=== PATIENT | female | born 1945 | race Two or more races ===

== ENCOUNTER 2022-06-30 17:50 | Emergency (ER) | payer OTHER | END 2022-06-30 20:02 | disposition left against medical advice (07) | LOC: ER 17:50 | DX: R11.10 Vomiting, unspecified (principal); Z53.21 Procedure and treatment not carried out due to patient leaving prior to being seen by health care provider ==

== ENCOUNTER 2022-08-29 01:11 | Emergency (ER) | payer OTHER ==
[~2022-08-29] VITALS: Ht 157.5 cm; Wt 50.0 kg
[2022-08-29 01:52] LABS: Basophils # (auto) 0 10 ^3/uL (0-0.2); Basophils % (auto) 0.6 % (0.0-2.0); Eosinophils # (auto) 0.1 10 ^3/uL (0-0.8); Eosinophils % (auto) 1.3 % (0.0-7.0); Hematocrit 34.5 % (36.0-46.0); Hemoglobin 11.7 g/dL (12.2-16.2); Lymphocytes # (auto) 1.4 10 ^3/uL (0.4-5.4); Lymphocytes % (auto) 29.3 % (10.0-50.0); Mean Corpuscular Hemoglobin 29.9 pg (28.0-32.0); Mean Corpuscular Hgb Conc. 33.9 g/dL (32.0-36.0); Mean Corpuscular Volume 88.3 fL (80.0-100.0); Monocytes # (auto) 0.4 10 ^3/uL (0-1.3); Monocytes % (auto) 8.7 % (0.0-12.0); Neutrophils # (auto) 2.9 10 ^3/uL (1.6-8.6); Neutrophils % (auto) 60.1 % (37.0-80.0); Red Blood Cells 3.91 10^6/uL (4.0-5.20); Red Cell Distribution Width 15.9 % (11.8-14.3); White Blood Cell 4.8 10^3/uL (4.4-10.8)
[2022-08-29 02:05] LABS: INR 1.18 (0.9-1.15); Partial Thromboplastin Time 28.6 sec (24.6-33.4)
[2022-08-29 02:09] LABS: Albumin 2.8 g/dL (3.4-5.0); Calcium 8.9 mg/dL (8.5-10.1); Potassium 3.3 mmol/L (3.5-5.1)
[2022-08-29 02:11] LABS: BUN/Creatinine Ratio 17.8
[2022-08-29 02:14] LABS: Bilirubin, Total 1.4 mg/dL (0.2-1.0)
[2022-08-29 02:15] LABS: Urine Bacteria FEW /hpf (None Seen); Urine Blood 2+ /uL (Negative); Urine WBC 1 /hpf (0 - 5)
[2022-08-29] MEDS ORDERED: LORazepam 2MG/ML-1ML VIAL IV ONE (02:15)
[2022-08-29] MEDS ORDERED: LACTULOSE 20Gm/30ML SOLN NG ONE (08:30)
[2022-08-29 15:51] VITALS: BP 120/57
== END 2022-08-29 16:09 | disposition short-term general hospital (02) ==
LOC: EDBD 01:11 → EDUNIT# 01:11 → ER 01:11
DX: R41.82 Altered mental status, unspecified (principal); I10 Essential (primary) hypertension; E11.9 Type 2 diabetes mellitus without complications; Z20.822 Contact with and (suspected) exposure to COVID-19
CPT/HCPCS: 36415; 70450; 70486; 71045; 72125; 80053; 81001; 82140; 84484; 85025; 85610; 85730; 87426; 96374; 99285; J2060